=== PATIENT | female | born 1990 | race African-American/Black ===

== ENCOUNTER 2022-04-29 08:53 | Emergency (ER) | payer OTHER ==
[2022-04-29] MEDS ORDERED: Amoxicillin/Potassium Clav 875 MG TAB ONE (10:57)
== END 2022-04-29 11:04 | disposition home or self-care (01) ==
LOC: ERS 08:53
DX: R07.9 Chest pain, unspecified (principal); J02.9 Acute pharyngitis, unspecified; Z20.822 Contact with and (suspected) exposure to COVID-19
CPT/HCPCS: 71045; 87081; 87430; 87804; 93005; U0003; U0005